=== PATIENT | female | born 1980 | race Caucasian/White ===

== ENCOUNTER 2018-04-18 17:21 | Emergency (ER) | payer MEDICAID ==
[~2018-04-18] VITALS: Ht 152.4 cm; Wt 90.7 kg
[2018-04-18 17:21] VITALS: BP_SYST 130
--- NOTE | 2018-04-18 17:21 | NUR ---
BROUGHT BACK TO BED #3 AND TRIAGED. REPORT GIVEN TO SHAKEEL
--- NOTE | 2018-04-18 17:21 | NUR ---
Lucero rodriguez in ED - 04/18/18 at 1748 by REBECCA BROUGHT BACK TO BED #3 AND TRIAGED. REPORT GIVEN TO VINCENZO
--- NOTE | 2018-04-18 17:30 | NUR ---
ER at bedside examining patient.
--- NOTE | 2018-04-18 17:32 | NUR ---
Pt presents to ER c/o L flank pain that radiates towards L lower abdomen. Pt rates pain 7/10 on pain scale. Pt denies hematuria / dysuria. Pt in no acute distress, respirations even and unlabored, speaking full sentences, AOX4, at bedside.
[2018-04-18 18:03] LABS: BASOPHILS % (AUTO) 0.4 % (0.0-2.0); EOSINOPHILS # (AUTO) 0.2 K/uL (0.0-0.4); EOSINOPHILS % (AUTO) 2.4 % (0.0-4.0); HEMATOCRIT 34.3 % (36-48); HEMOGLOBIN 11.7 g/dL (12.0-16.0); LYMPHOCYTES # (AUTO) 2.4 K/uL (1.0-5.5); LYMPHOCYTES % (AUTO) 30.3 % (20.5-51.5); MEAN CORPUSCULAR HEMOGLOBIN 29 pg (27-31); MEAN CORPUSCULAR HGB CONC 34 % (32-36); MEAN CORPUSCULAR VOLUME 85 fL (79.0-98.0); MONOCYTES # (AUTO) 0.4 K/uL (0.0-1.0); MONOCYTES % (AUTO) 5.2 % (1.7-9.3); NEUTROPHILS % (AUTO) 61.7 % (40.0-70.0); PLATELET COUNT (AUTO) 275 K/uL (130-430); RED BLOOD CELL COUNT(AUTO) 4.05 MIL/uL (4.2-6.2); RED CELL DISTRIBUTION WIDTH 13.8 % (9.0-15.0)
--- NOTE | 2018-04-18 18:30 | NUR ---
Pt resting comfortably on gurney, no signs of distress noted, at bedside.
[2018-04-18 18:37] LABS: BILIRUBIN,URINE NEGATIVE (NEGATIVE); BLOOD, URINE NEGATIVE (NEGATIVE); CLARITY/URINE SL HAZY (CLEAR); COLOR,URINE YELLOW (YELLOW); GLUCOSE,URINE NEGATIVE (NEGATIVE); KETONES,URINE NEGATIVE (NEGATIVE); LEUKOCYTE ESTERASE ,URINE NEGATIVE (NEGATIVE); NITRITE, URINE NEGATIVE (NEGATIVE); PROTEIN URINE NEGATIVE (NEGATIVE); UROBILINOGEN,URINE 0.2 (0.2-1.0)
[2018-04-18 18:39] LABS: CALCIUM 8.5 mg/dL (8.4-11.0); CREATININE 0.62 mg/dL (0.55-1.30); INR 0.9 (0.8-1.2); POTASSIUM 3.8 mmol/L (3.5-5.1); PROTHROMBIN TIME 9.4 SECS (9.5-12.5)
[2018-04-18 18:43] LABS: ALBUMIN 3.7 g/dL (3.4-4.8); TOTAL BILIRUBIN 0.2 mg/dL (0.0-1.0)
[2018-04-18 18:52] LABS: BACTERIA,URINE MODERATE /HPF (None Seen); RBC,URINE NONE SEEN /HPF (0-3)
[2018-04-18 18:53] LABS: MUCUS,URINE 1+ /LPF (None Seen)
--- NOTE | 2018-04-18 19:09 | NUR ---
Report given to Perla EWING.
[2018-04-18 19:46] VITALS: BP_SYST 124
--- NOTE | 2018-04-18 19:46 | NUR ---
Patient given written and verbal discharge instructions and verbalizes understanding. ER MD discussed with patient the results and treatment provided. Patient in stable condition. ID arm band removed. Rx of [place] and Motrin given. Patient educated on pain management and to follow up with PMD. Pain Scale 2/10. Opportunity for questions provided and answered. Medication side effect fact sheet provided.
== END 2018-04-18 19:46 | disposition home or self-care (01) ==
LOC: SED 17:21
DX: R10.32 Left lower quadrant pain (principal); R03.0 Elevated blood-pressure reading, without diagnosis of hypertension
CPT/HCPCS: 36415; 80053; 81000-TC; 82150-TC; 83690-TC; 84703; 85025; 85610-TC; 85730-TC; 87086; 99285